=== PATIENT | male | born 1950 | race Caucasian/White ===

== ENCOUNTER 2017-02-01 06:05 | Day surgery (SDC) | payer OTHER ==
--- NOTE | ~2017-02-01 | EGD ---
EGD REPORT [facility] [address] [place] [place] [address] NAME: ANDRÉS ARTIS : [birth year] STATUS : [place] [facility] [place] [facility] [place] PAT#: [id number] AGE: 66 ADM/REG DATE : 02/01/17 MR#: [id number] REPORT SERV DATE: 02/01/17 DICTATED BY: SHAWANDA MONTGOMERY DATE: 02/01/17 REPORT STATUS : Draft TRANSCRIBED BY: [facility] DATE: 02/01/17 Endoscopy Center Patient Name: Andrés Artis Date of : 1950 Attending MD: SHAWANDA MONTGOMERY MD Procedure Date No Time: 02/01/2017 Procedure: Upper GI endoscopy Indications: Heartburn, Nausea Referring MD: COMFORT LEDESMA Medicines: Propofol per Anesthesia Complications: No immediate complications. Estimated blood loss: None. Procedure: Pre-Anesthesia Assessment: - After reviewing the risks and benefits, the patient was deemed in satisfactory condition to undergo the procedure. - Prior to the procedure, a History and Physical was performed, and patient medications and allergies were reviewed. The patient's tolerance of previous anesthesia was also reviewed. The risks and benefits of the procedure and the sedation options and risks were discussed with the patient. All questions were answered, and informed consent was obtained. Prior Anticoagulants: The patient has taken no previous anticoagulant or antiplatelet agents. ASA Grade Assessment: III - A patient with severe systemic disease. After reviewing the risks and benefits, the patient was deemed in satisfactory condition to undergo the procedure. After obtaining informed consent, the endoscope was passed under direct vision. Throughout the procedure, the patient's blood pressure, pulse, and oxygen saturations were monitored continuously. The GIF [id number] was introduced through the mouth, and advanced to the third part of duodenum. The upper GI endoscopy was accomplished without difficulty. The patient tolerated the procedure well. Findings: Mildly severe esophagitis with no bleeding was found. The entire examined stomach and gastroesophageal junction (on retroflexion) were normal. The examined duodenum was normal. Impression: - Mildly severe reflux esophagitis. - Normal stomach and gastroesophageal junction. - Normal examined duodenum. EGD REPORT [address] [address] NAME: ANDRÉS ARTIS : [birth year] STATUS : REG [facility]#: [id number] AGE: 66 ADM/REG DATE : 02/01/17 MR#: [id number] REPORT SERV DATE: 02/01/17 DICTATED BY: SHAWANDA MONTGOMERY DATE: 02/01/17 REPORT STATUS : Draft TRANSCRIBED BY: [employer] DATE: 02/01/17 Recommendation: - Discharge patient to home (ambulatory). - Return to previous diet. Avoid eating within 4 hours of bedtime. - Continue present medications. - Use Prilosec OTC (omeprazole) 20 mg as needed. - Perform a colonoscopy today. - Patient has a contact number available for emergencies. The signs and symptoms of potential delayed complications were discussed with the patient. Return to normal activities tomorrow. Written discharge instructions were provided to the patient. Procedure Code(s): --- Professional --- 96171, Esophagogastroduodenoscopy, flexible, transoral; diagnostic, including collection of specimen(s) by brushing or washing, when performed (separate procedure) Diagnosis Code(s): --- Professional --- K21.0, Gastro-esophageal reflux disease with esophagitis R12, Heartburn R11.0, Nausea CPT copyright 2013 [employer]. All rights reserved. The codes documented in this report are preliminary and upon fermenting cellars supervisor review may be revised to meet current compliance requirements. SHAWANDA MONTGOMERY MD 02/01/2017 7:46 AM This report has been signed electronically. Number of Addenda: 0 Note Initiated On: 02/01/2017 7:18 AM Scope Withdrawal Time 0 hours 0 minutes 0 seconds [address] [place] [address]
--- NOTE | ~2017-02-01 | EGD ---
EGD REPORT [facility] [address] [place]. [address] NAME: ANDRÉS ARTIS : [birth year] STATUS : REG [facility] [place] PAT#: [id number] AGE: 66 ADM/REG DATE : 02/01/17 MR#: [id number] REPORT SERV DATE: 02/01/17 DICTATED BY: SHAWANDA MONTGOMERY DATE: 02/01/17 REPORT STATUS : Draft [facility]ANS[facility]IBED [facility]: [facility] DATE: 02/01/17 Endoscopy Center Patient Name: Andrés Artis Date of : 1950 Attending MD: SHAWANDA MONTGOMERY MD Procedure Date No Time: 02/01/2017 Procedure: Colonoscopy Indications: Screening for colorectal malignant neoplasm, This is the patient's first colonoscopy Referring MD: COMFORT LEDESMA Medicines: Propofol per Anesthesia Complications: No immediate complications. Estimated blood loss: None. Procedure: Pre-Anesthesia Assessment: - After reviewing the risks and benefits, the patient was deemed in satisfactory condition to undergo the procedure. - Prior to the procedure, a History and Physical was performed, and patient medications and allergies were reviewed. The patient's tolerance of previous anesthesia was also reviewed. The risks and benefits of the procedure and the sedation options and risks were discussed with the patient. All questions were answered, and informed consent was obtained. Prior Anticoagulants: The patient has taken no previous anticoagulant or antiplatelet agents. ASA Grade Assessment: III - A patient with severe systemic disease. After reviewing the risks and benefits, the patient was deemed in satisfactory condition to undergo the procedure. After I obtained informed consent, the scope was passed under direct vision. Throughout the procedure, the patient's blood pressure, pulse, and oxygen saturations were monitored continuously. The CF [id number] was introduced through the anus and advanced to the cecum, identified by appendiceal orifice and ileocecal valve. The colonoscopy was performed without difficulty. The ileocecal valve and appendiceal orifice were photographed. The patient tolerated the procedure well. The quality of the bowel preparation was good. The bowel preparation used was polyethylene glycol (PEG). Scope withdrawal time was greater than 15 minutes. Findings: The perianal and digital rectal examinations were normal. Pertinent negatives include normal sphincter tone. Non-bleeding internal hemorrhoids were found during retroflexion and EGD REPORT [address] [address] NAME: ANDRÉS ARTIS : [birth year] STATUS : REG [facility] [place] PAT#: [id number] AGE: 66 ADM/REG DATE : 02/01/17 MR#: [id number] REPORT SERV DATE: 02/01/17 DICTATED BY: SHAWANDA MONTGOMERY DATE: 02/01/17 REPORT STATUS : Draft TRANSCRIBED BY: [facility] DATE: 02/01/17 were medium-sized and Grade I (internal hemorrhoids that do not prolapse). Multiple small-mouthed diverticula were found in the sigmoid colon, in the descending colon and in the transverse colon. A sessile polyp was found in the mid ascending colon. The polyp was 13 mm in size. The polyp was removed with a hot snare. Resection was complete, but the polyp tissue was not retrieved. Estimated blood loss: none. The exam was otherwise without abnormality. Impression: - Non-bleeding internal hemorrhoids. - Mild diverticulosis in the sigmoid colon, in the descending colon and in the transverse colon. - One 13 mm polyp in the mid ascending colon. Complete resection. Polyp tissue not retrieved. - The examination was otherwise normal. Recommendation: - Discharge patient to home (ambulatory). - High fiber diet indefinitely. - Continue present medications. - Await pathology results. - Repeat colonoscopy in 3 years for surveillance of polyps greater than 1 cm in size. - Patient has a contact number available for emergencies. The signs and symptoms of potential delayed complications were discussed with the patient. Return to normal activities tomorrow. Written discharge instructions were provided to the patient. Procedure Code(s): --- Professional --- 29321, Colonoscopy, flexible, proximal to splenic flexure; with removal of tumor(s), polyp(s), or other lesion(s) by snare technique Diagnosis Code(s): --- Professional --- K64.0, First degree hemorrhoids K57.30, Diverticulosis of large intestine without perforation or abscess without bleeding D12.2, Benign neoplasm of ascending colon Z12.11, Encounter for screening for malignant neoplasm of colon CPT copyright 2013 [employer]. All rights reserved. The codes documented in this report are preliminary and upon automobile tire builder review may be revised to meet current compliance requirements. EGD REPORT [facility] [address] [place] [address] NAME: ANDRÉS ARTIS : [birth year] STATUS : REG [facility] [place] PAT#: [id number] AGE: 66 ADM/REG DATE : 02/01/17 MR#: [id number] REPORT SERV DATE: 02/01/17 DICTATED BY: SHAWANDA MONTGOMERY DATE: 02/01/17 REPORT STATUS : Draft TRANSCRIBED BY: [employer] DATE: 02/01/17 SHAWANDA MONTGOMERY MD 02/01/2017 8:15 AM This report has been signed electronically. Number of Addenda: 0 Note Initiated On: 02/01/2017 7:43 AM Scope Withdrawal Time 0 hours 15 minutes 44 seconds [address] [place] [id number]
[~2017-02-01 06:05] MED LIST: *DENIES
== END 2017-02-01 23:59 | disposition home or self-care (01) ==
LOC: DMU 06:05
PROVIDERS: Internal Medicine Gastroenterology
PROC: 0DBK8ZZ Excision of Ascending Colon, Via Natural or Artificial Opening Endoscopic (ICD-10-PCS; principal; 2017-02-01 07:30)
PROC: 0DJ08ZZ Inspection of Upper Intestinal Tract, Via Natural or Artificial Opening Endoscopic (ICD-10-PCS; 2017-02-01 07:30)
DX: Z12.11 Encounter for screening for malignant neoplasm of colon (principal); K64.0 First degree hemorrhoids; K57.30 Diverticulosis of large intestine without perforation or abscess without bleeding; K63.5 Polyp of colon; K20.9 Esophagitis, unspecified; G47.33 Obstructive sleep apnea (adult) (pediatric); E66.01 Morbid (severe) obesity due to excess calories; Z68.34 Body mass index [BMI] 34.0-34.9, adult; Z87.891 Personal history of nicotine dependence